=== PATIENT | female | born 1950 | race Caucasian/White ===

== ENCOUNTER → 2017-04-20 | Outpatient (CLI) | payer OTHER ==
[~2017-04-20] VITALS: Ht 167.6 cm; Wt 88.7 kg
[~2017-04-20] MED LIST: ALLEGRA ALLERGY60 MG PO; BP MEDS; BYSTOLIC20 MG PO; CELEXA40 MG; LIPITOR 20 MG T20 M1 PO; LIPITOR20 MG; LISINOPRIL-HCT1 EAC1 PO; MOBIC15 MG PO; NITROFURANTOIN100 MG; NORCO 5-325 TA1 EACH PO; PRILOSEC 20 MG20 MG PO; SERTRALINE HCL100 MG PO; VENTOLIN HFA 1818 GM INH; ZOFRAN ODT4 MG PO; ZOFRAN4 MG PO; ZOLOFT25 MG
--- NOTE | ~2017-04-20 | HPC ---
[facility] [place] [address] PAIN MANAGEMENT CONSULTATION Name: PROSPER HERRERA Room #: REG SUSIE TamayoSushil#: [id number] Admission: 04/20/17 Attend Phys: Peggy Yuan MD Discharge: Date of : 48 Report #: [id number] THIS REPORT FOR: //name// CC: Minoo Yuan DATE OF SERVICE: 04/20/2017 FOLLOWUP COMPLAINT: Pain in the low back area. FOLLOWUP HISTORY: The patient is a 66-year-old female who has been seen in the pain clinic because of lumbar radicular pain. She underwent an epidural steroid injection at the last visit. She noted improvement in her pain. She now is having pain primarily when she is sitting. It involves the low back area. Pain was radiating down into her legs along the back side, but this has improved since the last injection. She is having some pain in the left low back area. She has two trigger points, which are problematic. Palpation in the left and right portion of her back cause pain and discomfort. PHYSICAL EXAMINATION: Blood pressure 146/70, pulse 60, respiratory rate 16, room air saturation 96%. Height 5 feet 6 inches, weight 195 pounds, BMI is 31. The patient has not fallen since we saw her last. She does complain of some pain and discomfort in the posterior superior iliac spine areas of her back. Palpation in these areas can reproduce a portion of her pain. She is not having any significant shooting pain down into her leg, which she experienced at the initial time of interview. She notes that pain can be worsened with activity such as walking, traveling up and down stairs. It improves with use of heat, Aspercreme and stretching. The patient has pain and discomfort in the areas of trigger points near the posterior superior iliac spine on the left and the right area. Palpation in these areas reproduced her pain and discomfort. IMPRESSION: 1. Myofascial pain in the area of the left and right posterior superior iliac spine areas near the gluteus angelo and latissimus dorsi areas. 2. History of lumbar radiculopathy, L5-S1 dermatomal distribution, which has improved since the last injection. 3. History of asthma. 4. Hypertension. 5. Emotional problems. 6. Joint disease/arthritis. RECOMMENDATIONS: We discussed treatment options with the patient. Risks and benefits of the procedure were discussed. Possible complications were reviewed. The patient elects to proceed with trigger point injections to the left and right posterior [place] [address] PAIN MANAGEMENT CONSULTATION Name: PROSPER HERRERA Room #: REG [facility] Omar#: [id number] Admission: 04/20/17 Attend Phys: Peggy Yuan MD Discharge: Date of : 48 Report #: [id number] PROCEDURE NOTE: The patient was placed in the sitting position. Her back was sterilely prepped with a chlorhexidine solution and allowed to dry. Her left posterior superior iliac spine area near the gluteus angelo and latissimus dorsi was palpated. Trigger point was noted. A 25-gauge needle was then advanced into the area of discomfort. After the patient noted the appropriate placement of the needle, a total of 40 mg of triamcinolone with 10 mL of 0.5% bupivacaine was injected. The contralateral side was treated in a like fashion. A 25-gauge needle was then advanced into the area of the trigger point near the posterior superior iliac spine and gluteus angelo and latissimus dorsi. A total of 40 mg of triamcinolone was injected. Total of 10 mL of 0.5% bupivacaine was injected. The patient's pain decreased to 0 at the time of discharge. She will follow up in the future as needed. We would like to thank you for letting us participate in her care. We hope she continues to improve. By: [id number] [id number] Peggy Yuan MD /ALYSE
[2017-04-20 10:01] VITALS: BP 146/70
== END | disposition home or self-care (01) ==
LOC: PAIN 07:01
DX: M79.1 Myalgia (principal); M54.16 Radiculopathy, lumbar region; J45.909 Unspecified asthma, uncomplicated; I10 Essential (primary) hypertension; M19.90 Unspecified osteoarthritis, unspecified site; Z68.31 Body mass index [BMI] 31.0-31.9, adult

== ENCOUNTER → 2017-06-27 | Outpatient (CLI) | payer OTHER ==
[~2017-06-27] VITALS: Ht 167.6 cm; Wt 89.5 kg
--- NOTE | ~2017-06-27 | HPC ---
[facility] [place] [address] PAIN MANAGEMENT CONSULTATION Name: PROSPER HERRERA Room #: REG SUSIE Omar#: [id number] Admission: 06/27/17 Attend Phys: Peggy Yuan MD Discharge: Date of : 48 Report #: [id number] THIS REPORT FOR: //name// CC: Minoo Yuan DATE OF SERVICE: 06/27/2017 FOLLOWUP COMPLAINT: Pain in the low back down into the right side of the leg and down to the lower portion of the leg. FOLLOWUP HISTORY: The patient is a 67-year-old female who has been seen in the Pain Clinic because of lumbar radiculopathy. She has undergone epidural steroid injections in the past. She has gleaned benefits from these. She returns today indicating that she continues to have pain, which is radiating down into the leg with numbness, weakness, and most problematic on the right side. She rates it as a 6/10. There is a sharp, aching, steady, shooting, throbbing steady discomfort in this area. Last epidural steroid injection was helpful. She has had no complication from the procedure. At this juncture, regular activities such as sitting, lying down, climbing stairs and walking can worsen her pain and discomfort. The pain relief she received from the last injection was beneficial and she would like to proceed with another epidural steroid injection. She has had no new trauma to her back. She has not fallen since we saw her last. No change in bowel or bladder function. ALLERGIES: SULFA. REVIEW OF CURRENT MEDICATIONS: Indicate continued use of Prilosec 20 mg, Bystolic 20 mg daily, Ventolin inhaler 2 puffs p.r.n., sertraline 100 mg, Mobic 15 mg, lisinopril/hydrochlorothiazide 20/12.5 mg, Lipitor 20 mg. PAIN CLINIC ASSESSMENT: 1. History of osteoarthritis/rheumatoid arthritis. The patient is not receiving treatment for osteoarthritis or rheumatoid arthritis. 2. Height 5 feet 6 inches, weight 197 pounds, BMI is 31. 3. Vital signs: Blood pressure 150/78, pulse 68, respiratory rate 16, room air saturation 98%, temperature is 98. 4. Pain intensity rated as a 6/10. 5. Fall risk. The patient has not fallen since we saw her last. 6. The patient is not on blood thinner. 7. History of hypertension. The patient is being treated for hypertension. 8. Opioid therapy. The patient is not on a regular opioid regimen. 9. Risk assessment tool. 10. Functional assessment tool. 11. Recreational drug use. The patient [place] [address] PAIN MANAGEMENT CONSULTATION Name: PROSPER HERRERA ERICK Room #: REG [facility]#: [id number] Admission: 06/27/17 Attend Phys: Peggy Yuan MD Discharge: Date of : 48 Report #: [id number] 12. Tobacco, denies use of tobacco. Alcohol, 5-6 alcoholic beverages per week. PHYSICAL EXAMINATION: GENERAL: The patient is a well-developed female, appears her stated age. Orientation is alert and oriented x 3. Affect is appropriate. HEENT: Normocephalic, atraumatic. Extraocular muscles intact. Nonicteric conjunctivae and normal hearing. No nasal complaints. Moist buccal membranes. NECK: No JVD. LUNGS: Clear to auscultation. HEART: Regular rate. ABDOMEN: Nontender. MUSCULOSKELETAL: General normal alignment of the spinal area without significant kyphosis, lordosis, or scoliosis. The patient has some pain and discomfort in the low back area involving the low back with pain radiating down into the right leg with positive straight leg raise. Complains of a sharp, aching, steady, shooting pain involving the affected leg. IMPRESSION: 1. Lumbar radiculopathy involving the left leg in the L5-S1 dermatomal distribution. 2. Myofascial pain in the left and right posterior and superior iliac spine areas. 3. History of asthma. 4. Hypertension. 5. Emotional problems. 6. Joint disease/arthritis. RECOMMENDATIONS: We discussed the treatment options with the patient. We will proceed with an epidural steroid injection given that the patient is having pain, which is radiating down in the L5-S1 distribution with numbness and weakness involving her left leg. Possible complications of the procedure were reviewed with the patient. They include but are not limited to infection, increased muscle soreness, headache, bleeding, nerve damage or worsening of pain or no improvement in pain. At this juncture, she agrees to proceed. PROCEDURE NOTE: The patient was placed in the prone position. Fluoroscopy was used to identify the L5-S1 area. Anterior, posterior viewing as well as lateral with the fluoroscopy was used. After the target area was identified, 0.25% bupivacaine was infiltrated into this area after it had been sterilely prepped with Betadine. A 17-gauge Tuohy with loss of resistance technique was used to gain access to the epidural space. There was no CSF heme or paresthesia. A total of 80 mg Depo-Medrol, 40 mg triamcinolone and 2 mL of 0.25% bupivacaine was injected. The patient was then taken to the recovery room. A Band-Aid had been placed. There was no appreciable bleeding. She remained in the Pain Clinic for an appropriate amount of time. She will follow up in the future as needed. [facility] [address] [place] [address] PAIN MANAGEMENT CONSULTATION Name: PROSPER HERRERA Room #: REG [facility] Roni.#: [id number] Admission: 06/27/17 Attend Phys: Peggy Yuan MD Discharge: Date of : 48 Report #: [id number] We would like to thank you for letting us participate in her care. We hope she continues to improve. <ELECTRONICALLY SIGNED> By: Peggy Yuan MD 07/25/17 1426 1307 0252 Peggy Yuan MD /PMT
[2017-06-27 09:00] VITALS: BP 150/78
== END ==
LOC: PAIN 06:40
DX: M54.16 Radiculopathy, lumbar region (principal); Z88.8 Allergy status to other drugs, medicaments and biological substances; Z79.899 Other long term (current) drug therapy; M06.9 Rheumatoid arthritis, unspecified; Z68.31 Body mass index [BMI] 31.0-31.9, adult; I10 Essential (primary) hypertension; F11.20 Opioid dependence, uncomplicated; M79.1 Myalgia; J45.909 Unspecified asthma, uncomplicated; M19.90 Unspecified osteoarthritis, unspecified site

== ENCOUNTER → 2017-06-28 | Outpatient (CLI) | payer OTHER | LOC: MRI 11:56 | DX: M48.07 Spinal stenosis, lumbosacral region (principal); M41.86 Other forms of scoliosis, lumbar region; M47.896 Other spondylosis, lumbar region; M21.372 Foot drop, left foot ==

== ENCOUNTER 2020-11-17 08:01 | Day surgery (SDC) | payer OTHER, MEDICARE ==
[~2020-11-17] VITALS: Ht 167.6 cm; Wt 83.0 kg
[~2020-11-17 08:01] MED LIST changes: +GABAPENTIN 100100 MG PO; +HYDROCHLOROTHIA25 M1 PO; +PRILOSEC OTC20 MG PO; +SYMBICORT160 MCG/4. INH
[2020-11-17 08:40] VITALS: BP 148/73
[2020-11-17 08:53] LABS: CALCIUM 9.4 mg/dL (8.5-10.1); POTASSIUM 3.9 mmol/L (3.5-5.1)
[2020-11-17] MEDS ORDERED: ENDOCET 7.5-321 EACH PO (13:15)
[2020-11-17] MEDS ORDERED: ASA81BEC PO (13:16)
[2020-11-17 14:00] VITALS: BP 148/73
--- NOTE | 2020-11-18 07:23 | EKG ---
[address] [address] ELECTROCARDIOGRAM REPORT Name: PROSPER HERRERA Room #: DEP [facility]#: [id number] Admission: 11/17/20 Attend Phys: Angus Cotton MD Discharge: 11/17/20 Date of : 48 Report #: [id number] [facility] Test Date: 2020-11-17 Test Time: 08:36:44 Pat Name: PROSPER HERRERA Department: Room: 150 4 Gender: F Md Urologist: AUREA : 1950 Requested By: Tayler Melara Order Number: [id number] MD: Noam Mauricio Measurements Intervals [place] Rate: 54 P: 26 AL: 169 QRS: 6 QRSD: 107 T: 19 QT: 438 QTc: 416 Interpretive Statements Sinus rhythm Minimal ST elevation, inferior leads No previous ECG available for comparison Electronically Signed On 11-18-2020 7:23:38 CDT by Noam Mauricio [email or web address] <ELECTRONICALLY SIGNED> By: Noam Mauricio MD, [facility] 11/18/2023 0836 0836 Noam Mauricio MD, FACHéctor /EPI
--- NOTE | 2020-11-25 16:09 | O ---
[facility] [place] [address] OPERATIVE REPORT Name: PROSPER HERRERA Room #: DEP [facility].#: [id number] Admission: 11/17/20 Attend Phys: Angus Cotton MD Discharge: 11/17/20 Date of : 48 Report #: [id number] THIS REPORT FOR: cc: Minoo Galindo MD, Aimee B. MD Kneidel,Angus Berman MD ~ DOC #: [id number] Angus Cotton MD DATE OF SERVICE: 11/17/2020 PREOPERATIVE DIAGNOSES: 1. Left foot midfoot fusion nonunion. 2. Left foot flat foot deformity. 3. Left Achilles contracture. POSTOPERATIVE DIAGNOSES: 1. Left foot midfoot fusion nonunion. 2. Left foot flat foot deformity. 3. Left Achilles contracture. PROCEDURES: 1. Left iliac crest bone graft procurement. 2. Left midfoot revision arthrodesis. 3. Left foot talonavicular arthrodesis. 4. Left foot subtalar joint arthrodesis. 5. Left ankle Achilles tendon lengthening. SURGEON: Angus Cotton MD CLERK CHECKER: None. ANESTHESIA: General. ESTIMATED BLOOD LOSS: Minimal. No drains. TOURNIQUET TIME: 2 hours. DESCRIPTION OF PROCEDURE: The patient brought to the operating room, where she was placed under general anesthesia. Once under adequate general anesthesia, her left lower extremity was prepped and draped in a sterile manner. The extremity was elevated, exsanguinated, tourniquet placed 300 mmHg. Prior to elevating the tourniquet, the left iliac crest was exposed through a 3 cm incision. Dissection was carried down to the crest where the periosteum was elevated off of the bone and an [employer] trephine was then utilized to remove [facility] [address] [place] [address] OPERATIVE REPORT Name: JAVIERPROSPER LOU Room #: DEP [facility]..#: [id number] Admission: 11/17/20 Attend Phys: Angus Cotton MD Discharge: 11/17/20 Date of : 48 Report #: [id number] graft from the iliac crest. Three passes were made with the trephine to remove the bone. Some of the bloody serous fluid from the crest was also taken along with a syringe. Once complete, the wound was irrigated copiously. Gelfoam was placed into the defect and the wound was then closed with 0 Vicryl in the periosteal layer, 2-0 Vicryl in subcutaneous tissues and jane were used for the skin. This wound was then dressed with an Op-Site. We then proceeded distally and the extremity was elevated, exsanguinated, tourniquet placed 300 mmHg. A lateral incision over the sinus tarsi was made with dissection carried down to the subtalar joint. The joint was then exposed and reduced ____ the cartilage on the posterior facet was removed with curettes, osteotomes and a bur. Once this was completely prepared, the patient's previous scar was opened and extended proximally on the dorsum of her foot to the dorsal talus. Exposure of the talonavicular joint, navicular cuneiform joint, and first tarsometatarsal joint was then achieved. The talonavicular joint was then prepared as the subtalar joint had been. This was then also fenestrated with a drill. The patient did have hardware in the medial cuneiform extending over the navicular cuneiform joint as well as across the first TMT joint. This hardware was then removed, which consisted of 4 screws and a metal plate. Once these were removed, the navicular cuneiform and first TMT joints were prepared as well utilizing a rongeur to remove any intervening soft tissue and a bur to get to good bleeding subchondral bone. These joints were fenestrated with a 2.0 drill as well. Fixation was then achieved after placing the bone graft with demineralized bone matrix into the subtalar, talonavicular, navicular cuneiform and first TMT joints. Two 6.5 mm cannulated screws were placed across the subtalar joint utilizing fluoroscopy for guidance. Two 4.5 mm cannulated screws were placed across the talonavicular joint. The navicular cuneiform and first TMT joints were crossed with a 4.5 mm cannulated screw and then a dorsal plate and screws were placed utilizing fluoroscopy for guidance. Excellent fixation and alignment was achieved as verified under fluoroscopy. The wounds were irrigated copiously and closed with 2-0 Vicryl in the deep and subcutaneous tissues and jane were used for the skin. During the procedure, a percutaneous Achilles tendon lengthening was performed as well with a [place] blade through three separate stab incisions, one extending medially across the Achilles, one extending laterally and the last extending medially as well. This did lengthen the Achilles appropriately. These wounds were closed with jane for the skin. The wounds were dressed with Xeroform, 4 x 4's, and sterile soft compressive dressing with a short leg cast was placed. Tourniquet was let down at approximately 2 hours. Toes were pink and warm. Good capillary refill. There were no complications from the procedure. The patient tolerated the procedure well and was to the recovery room without incident. MD CHITO Garza/LIANE/SHABBIR [facility] [address] [place] [address] OPERATIVE REPORT Name: PROSPER HERRERA Room #: [facility] M.R.#: [id number] Admission: 11/17/20 Attend Phys: Angus Cotton MD Discharge: 11/17/20 Date of : 48 Report #: [id number] <ELECTRONICALLY SIGNED> By: Angus Cotton MD 11/25/20 1609 1225 1254 Angus Cotton MD /nt
== END 2020-11-17 16:04 | disposition home or self-care (01) ==
LOC: TBA 08:01 → OR 08:01 → TBA 08:03 → OR 08:56
PROVIDERS: Student in an Organized Health Care Education/Training Program; ATTEND Orthopaedic Surgery Foot and Ankle Surgery
DX: M96.0 Pseudarthrosis after fusion or arthrodesis (principal); M21.42 Flat foot [pes planus] (acquired), left foot; M67.02 Short Achilles tendon (acquired), left ankle; I10 Essential (primary) hypertension; E78.5 Hyperlipidemia, unspecified; J45.909 Unspecified asthma, uncomplicated; K21.9 Gastro-esophageal reflux disease without esophagitis; Z98.890 Other specified postprocedural states; Z79.899 Other long term (current) drug therapy; Z87.891 Personal history of nicotine dependence; Z96.651 Presence of right artificial knee joint; Z98.51 Tubal ligation status
CPT/HCPCS: 50010; 50101; 50386; 50403; 51014; 51412; 53341; 56524; 57180; 58118; 58188; 58459; 58461; 58462; 58463; 58464; 58466; 58881; 58882; 58883; 58884; 58885; 58886; 58887; 62110; 62900; 64039; 64043; 65060; 70005